=== PATIENT | male | born 1945 | race Caucasian/White ===

== ENCOUNTER 2022-04-01 19:09 | Inpatient (IN) ==
[2022-04-01] MEDS ORDERED: SODIUM CHLORIDE 0.9% 1000ML 500 ML IV ONE (19:56)
[2022-04-01 19:57] LABS: Basophils # (auto) 0.06 K/uL (0-0.2); Basophils % (auto) 0.7 %; Eosinophils # (auto) 0.17 K/uL (0-0.50); Eosinophils % (auto) 1.9 %; Hematocrit (blood only) 38.4 % (40.1-51.0); Hemoglobin 12.9 g/dl (14.0-18.0); Immature Granulocytes # (auto) 0.03 K/uL (0.00-0.02); Immature Granulocytes % (auto) 0.3 %; Lymphocytes # (auto) 1.67 K/uL (1.2-3.4); Lymphocytes % (auto) 18.3 %; Mean Corpuscular Hemoglobin 30.6 pg (25.0-34.0); Mean Corpuscular Hgb Conc 33.6 g/dL (32.0-36.0); Mean Corpuscular Volume 91.2 fL (80.0-100.0); Mean Platelet Volume 9.9 fL (9.4-12.4); Monocytes # (auto) 0.55 K/uL (0.24-0.82); Neutrophils # (auto) 6.64 K/uL (1.4-6.5); Neutrophils % (auto) 72.8 %; Platelet Count 286 K/uL (130-400); RDW Coefficient of Variation 15.1 % (11.5-14.5); RDW Standard Deviation 50.2 fL (36.4-46.3); Red Blood Count 4.21 M/uL (4.63-6.08); White Blood Count 9.12 K/ul (4.8-10.8)
--- NOTE | 2022-04-01 20:04 | Emergency Department Note ---
Impression & Plan Weakness, Hypoglycemia, Pneumonia, Anemia ED Provider Note NAME: KENNA GARCIA AGE: 76 SEX: M : 1945 ARRIVES VIA: Ambulance INFORMANT: [Patient][ems, nursing] ED PROVIDER(S): [Ashwin Macdonald MD] CHIEF COMPLAINT: Overdose HISTORY OF PRESENT ILLNESS: The patient is a 76-year-old male who received his morning insulin dose this morning as administered by his . Tonight, he was not himself, he had not yet eaten, his sugar was 23 when seen by EMS. Received D10 IV and his sugar is now 71. He has back to his mental baseline per EMS. The patient's arrived at bedside. She states that the patient has gone downhill in the last week. His speech is more slurred, he is less active and is requiring more care. He is just not himself. Of note, the patient was seen recently in the ED for a very similar presentation. He improved in the ED is eventually sent home. REVIEW OF SYSTEMS: Unobtainable given the patient's current mental state and slurred speech. PMHx/PSHx: See Below SOCIAL HISTORY: See Below. PHYSICAL EXAM: GENERAL: Patient is in no acute distress. HEENT: No acute trauma, normocephalic atraumatic, mucous membranes moist, no nasal congestion, no scleral icterus. NECK: No stridor, no adenopathy, no meningismus, trachea is midline. LUNGS: Clear to auscultation bilaterally, no wheeze, no rhonchi, breath sounds equal. HEART: Without murmurs gallops or rubs, regular rate and rhythm. ABDOMEN: Soft, nontender, bowel sounds positive, no peritonitis. EXTREMITIES: No cyanosis or edema, full range of motion of all the joints w ithout pain or difficulty, no signs for acute trauma. NEUROLOGIC: Awake and alert, moving all extremities, speech slur noted. Slow speech noted. SKIN: No rash, no jaundice, no diaphoresis. DIFFERENTIAL DIAGNOSIS: Infection, dehydration, UTI, metabolic abnormality, hypo/hyperglycemia, electrolyte disturbance, anemia, hypoxia, cardiac sources, intracerebral event, toxicologic issues, stroke, TIA, as well as other pathologies. EMERGENCY DEPARTMENT COURSE/PROCEDURES: ECG: Indication was weakness. The ECG shows a sinus rhythm with a first- degree AV block. The rate is 74. 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 There are some inverted T waves seen in the lateral leads. No ST elevation, no PVCs. The QTc is 459. There is an ECG from 31 March 2022, I see no significant change. Continuous Cardiac Monitoring: An order was placed for continuous cardiac monitoring. The monitor shows a rate of 77 with sinus rhythm with a first- degree AV block. MEDICAL DECISION MAKING: There is no leukocytosis. The patient is anemic with a hemoglobin of 12.9. Platelet count was 286. No renal failure. Glucose was initially reported at 23. By our testing here, the glucose has been ranging between 58 to around 100. No concerning liver enzyme elevation. Urinalysis did not show infection. COVID test returned negative. Brain CT shows no acute bleed or mass-effect. Chest x- ray suggests a potential left lower lung pneumonia. ECG shows a sinus rhythm with a first-degree AV block, no obvious ischemia. The patient had received IV D10 for a low sugar recorded by the EMS crew. This was the second day in a row that his sugar was very low As per the patient's , the patient has not been himself and has been on a significant decline this last week. She did not feel he was safe to be at home. The patient was given IV saline, he received IV ceftriaxone for the presumed pneumonia. He did eat here to help with the lower recorded sugar values. Given the 2 visits in just 2 days, given the low sugar, given his weakness and decline, given the potential pneumonia on imaging, I do think a hospital stay is warranted. I did speak with case management, I spoke with the patient and his , the on-call hospitalist was consulted. Past Med/Surg History Medical History Dementia Diabetes Hypertension Parkinsons Social History Smoking Status: Never smoker Results & Data (ED) Vital Signs Vital Signs - 24 hr 04/01/22 19:30 04/01/22 19:30 04/01/22 20:00 Temperature 36.8 C Temperature Source Oral Pulse Rate 77 Pulse Rate [Apical] 73 Pulse Rhythm Regular Pulse Strength Normal Respiratory Rate 18 16 Respiratory Effort / Characteristics Non-Labored Spontaneous Non-Labored Spontaneous Respiratory Depth Normal Normal Respiratory Pattern Regular Blood Pressure 155/93 H Blood Pressure [Left Arm] 168/74 H Blood Pressure Mean 113 Blood Pressure Mean [Left Arm] 105 Blood Pressure Position Semi-fowlers Pulse Oximetry 96 96 97 Oxygen Delivery Method Room Air Room Air Room Air Oxygen Flow Rate 0 Sepsis Recent Fever Within 48 Hours No Sepsis New/Unexplained Change in Mental Status No Sepsis Action Taken by Nursing No Action Required 04/01/22 21:05 Temperature Temperature Source Pulse Rate Pulse Rate [Apical] 74 Pulse Rhythm Pulse Strength Respiratory Rate 18 Respiratory Effort / Characteristics Non-Labored Spontaneous Respiratory Depth Normal Respiratory Pattern Regular Blood Pressure Blood Pressure [Left Arm] 141/73 H Blood Pressure Mean Blood Pressure Mean [Left Arm] 95 Blood Pressure Position Pulse Oximetry 94 Oxygen Delivery Method Room Air Oxygen Flow Rate Sepsis Recent Fever Within 48 Hours Sepsis New/Unexplained Change in Mental Status Sepsis Action Taken by Custodial Medications Current Medication List: was personally reviewed by me Laboratory Data Attestation: I reviewed the patient's lab results. Result diagrams: 04/01/22 19:15 04/01/22 19:15 Lab Results 04/01/22 04/01/22 04/01/22 Range/Units 19:15 19:15 19:17 WBC 9.12 (4.8-10.8) K/ul RBC 4.21 L (4.63-6.08) M/uL Hgb 12.9 L (14.0-18.0) g/dl Hct 38.4 L (40.1-51.0) % MCV 91.2 (80.0-100.0) fL MCH 30.6 (25.0-34.0) pg MCHC 33.6 (32.0-36.0) g/dL RDW Std Deviation 50.2 H (36.4-46.3) fL RDW Coeff of Annmarie 15.1 H (11.5-14.5) % Plt Count 286 (130-400) K/uL MPV 9.9 (9.4-12.4) fL Immature Gran % (Auto) 0.3 % Neut % (Auto) 72.8 % Lymph % (Auto) 18.3 % [place] % (Auto) 6.0 % Eos % (Auto) 1.9 % Baso % (Auto) 0.7 % Neut # (Auto) 6.64 H (1.4-6.5) K/uL Lymph # (Auto) 1.67 (1.2-3.4) K/uL [place] # (Auto) 0.55 (0.24-0.82) K/uL Eos # (Auto) 0.17 (0-0.50) K/uL Baso # (Auto) 0.06 (0-0.2) K/uL Immature Gran # (Auto) 0.03 H (0.00-0.02) K/uL Sodium 140 (136-145) mmol/L Potassium 3.7 (3.5-5.1) mmol/L Chloride 104 (98-107) mmol/L Carbon Dioxide 28 (21-32) mmol/L Anion Gap 8 (3-11) BUN 22 (6-23) mg/dl Creatinine 0.90 (0.6-1.4) mg/dl Est Cr Clr Drug Dosing 67.6 ml/min Est GFR ( Amer) 94.5 ml/min Est GFR (Non-Af Amer) 81.5 ml/min BUN/Creatinine Ratio 24.4 H (10-20) Glucose 58 L (70-99(Fasting)) mg/dl POC Glucose 71 (70-99) mg/dl Calcium 9.2 (8.5-10.1) mg/dl Total Bilirubin 0.5 (0.2-1.0) mg/dl AST 17 (13-39) U/L ALT 11 (7-52) U/L Alkaline Phosphatase 59 (34-104) U/L Total Protein 7.1 (6.0-8.3) gm/dl Albumin 4.1 (3.4-5.0) gm/dl Globulin 3.0 (2.5-4.0) gm/dl Albumin/Globulin Ratio 1.4 (0.9-2) Urine Color Urine Appearance (Clear) Urine pH (4.5-7.5) Ur Specific [place] (1.000-1.030) Urine Protein (Negative) Urine Glucose (UA) (Negative) Urine Ketones (Negative) Urine Blood (Negative) Urine Nitrite (Negative) Urine Bilirubin (Negative) Urine Urobilinogen (Negative) Ur Leukocyte Esterase (Negative) SARS-CoV-2, RNA, NAAT (NEGATIVE) 04/01/22 04/01/22 04/01/22 Range/Units 19:53 20:08 20:49 WBC (4.8-10.8) K/ul RBC (4.63-6.08) M/uL Hgb (14.0-18.0) g/dl Hct (40.1-51.0) % MCV (80.0-100.0) fL MCH (25.0-34.0) pg MCHC (32.0-36.0) g/dL RDW Std Deviation (36.4-46.3) fL RDW Coeff of Annmarie (11.5-14.5) % Plt Count (130-400) K/uL MPV (9.4-12.4) fL Immature Gran % (Auto) % Neut % (Auto) % Lymph % (Auto) % [place] % (Auto) % Eos % (Auto) % Baso % (Auto) % Neut # (Auto) (1.4-6.5) K/uL Lymph # (Auto) (1.2-3.4) K/uL [place] # (Auto) (0.24-0.82) K/uL Eos # (Auto) (0-0.50) K/uL Baso # (Auto) (0-0.2) K/uL Immature Gran # (Auto) (0.00-0.02) K/uL Sodium (136-145) mmol/L Potassium (3.5-5.1) mmol/L Chloride (98-107) mmol/L Carbon Dioxide (21-32) mmol/L Anion Gap (3-11) BUN (6-23) mg/dl Creatinine (0.6-1.4) mg/dl Est Cr Clr Drug Dosing ml/min Est GFR ( Amer) ml/min Est GFR (Non-Af Amer) ml/min BUN/Creatinine Ratio (10-20) Glucose (70-99(Fasting)) mg/dl POC Glucose 102 H (70-99) mg/dl Calcium (8.5-10.1) mg/dl Total Bilirubin (0.2-1.0) mg/dl AST (13-39) U/L ALT (7-52) U/L Alkaline Phosphatase (34-104) U/L Total Protein (6.0-8.3) gm/dl Albumin (3.4-5.0) gm/dl Globulin (2.5-4.0) gm/dl Albumin/Globulin Ratio (0.9-2) Urine Color Yellow Urine Appearance Clear (Clear) Urine pH 6.0 (4.5-7.5) Ur Specific [place] 1.008 (1.000-1.030) Urine Protein Negative (Negative) Urine Glucose (UA) Negative (Negative) Urine Ketones Negative (Negative) Urine Blood Negative (Negative) Urine Nitrite Negative (Negative) Urine Bilirubin Negative (Negative) Urine Urobilinogen Negative (Negative) Ur Leukocyte Esterase Negative (Negative) SARS-CoV-2, RNA, NAAT NEGATIVE (NEGATIVE) 04/01/22 Range/Units 20:49 WBC (4.8-10.8) K/ul RBC (4.63-6.08) M/uL Hgb (14.0-18.0) g/dl Hct (40.1-51.0) % MCV (80.0-100.0) fL MCH (25.0-34.0) pg MCHC (32.0-36.0) g/dL RDW Std Deviation (36.4-46.3) fL RDW Coeff of Annmarie (11.5-14.5) % Plt Count (130-400) K/uL MPV (9.4-12.4) fL Immature Gran % (Auto) % Neut % (Auto) % Lymph % (Auto) % [place] % (Auto) % Eos % (Auto) % Baso % (Auto) % Neut # (Auto) (1.4-6.5) K/uL Lymph # (Auto) (1.2-3.4) K/uL [place] # (Auto) (0.24-0.82) K/uL Eos # (Auto) (0-0.50) K/uL Baso # (Auto) (0-0.2) K/uL Immature Gran # (Auto) (0.00-0.02) K/uL Sodium (136-145) mmol/L Potassium (3.5-5.1) mmol/L Chloride (98-107) mmol/L Carbon Dioxide (21-32) mmol/L Anion Gap (3-11) BUN (6-23) mg/dl Creatinine (0.6-1.4) mg/dl Est Cr Clr Drug Dosing ml/min Est GFR ( Amer) ml/min Est GFR (Non-Af Amer) ml/min BUN/Creatinine Ratio (10-20) Glucose (70-99(Fasting)) mg/dl POC Glucose 89 (70-99) mg/dl Calcium (8.5-10.1) mg/dl Total Bilirubin (0.2-1.0) mg/dl AST (13-39) U/L ALT (7-52) U/L Alkaline Phosphatase (34-104) U/L Total Protein (6.0-8.3) gm/dl Albumin (3.4-5.0) gm/dl Globulin (2.5-4.0) gm/dl Albumin/Globulin Ratio (0.9-2) Urine Color Urine Appearance (Clear) Urine pH (4.5-7.5) Ur Specific [place] (1.000-1.030) Urine Protein (Negative) Urine Glucose (UA) (Negative) Urine Ketones (Negative) Urine Blood (Negative) Urine Nitrite (Negative) Urine Bilirubin (Negative) Urine Urobilinogen (Negative) Ur Leukocyte Esterase (Negative) SARS-CoV-2, RNA, NAAT (NEGATIVE) Administered Medications Discontinued Medications Sodium Chloride (Nss 1000ml) 500 mls @ 999 mls/hr IV .Q31M ONE Stop: 04/01/22 20:26 Last Infusion: 04/01/22 20:51 Dose: 0 mls/hr Documented By: Admin: 04/01/22 20:00 Dose: 999 mls/hr Documented By: AN Imaging Data Radiologist's Impression: Chest X-Ray 04/01/22 19:56 XR chest 1V portable HISTORY: Altered mental status. COMPARISON: Chest 03/31/2022. FINDINGS: No pneumothorax. No pleural effusions. The heart is normal in size. No evidence for pulmonary edema. There are old, healed right-sided rib fractures. Left retrocardiac linear densities are noted. This favors atelectasis. A de veloping pneumonia could also have a similar appearance. Old, healed right humeral and distal right clavicle fracture is again noted. IMPRESSION: A few left retrocardiac linear densities which favor atelectasis. A developing pneumonia could also have a similar appearance. ACT 112: Negative or not required by law. Electronically signed by: Chai Campbell M.D. 04/01/2022 8:[address]: No acute intracranial abnormality. Sinuses are clear. Age-related atrophy. Discharge Plan Visit Data Chief Complaint: Overdose (Accidental) ED Provider: Ashwin Macdonald Discharge Problem: Weakness, Hypoglycemia, Pneumonia, Anemia Patient Disposition: Admitted As Inpatient Condition: Fair Forms Stand Alone Forms: [facility] Referrals [facility]: [facility] [Primary Care Provider] -
[2022-04-01 20:21] LABS: Albumin Globulin Ratio 1.4 (0.9-2); Albumin Level 4.1 gm/dl (3.4-5.0); BUN Creatinine Ratio 24.4 (10-20); Bilirubin,Total 0.5 mg/dl (0.2-1.0); Calcium 9.2 mg/dl (8.5-10.1); Creatinine Clr Calc Pharmacy 67.6 ml/min; Est GFR (African American) 94.5 ml/min; Est GFR (Non-African American) 81.5 ml/min; Potassium 3.7 mmol/L (3.5-5.1); Total Protein 7.1 gm/dl (6.0-8.3)
--- NOTE | 2022-04-01 20:58 | XRay Report ---
XR chest 1V portable HISTORY: Altered mental status. COMPARISON: Chest 03/31/2022. FINDINGS: No pneumothorax. No pleural effusions. The heart is normal in size. No evidence for pulmona ry edema. There are old, healed right-sided rib fractures. Left retrocardiac linear densities are not ed. This favors atelectasis. A developing pneumonia could also have a similar appearance. Old, healed right humeral and distal right clavicle fracture is again noted. IMPRESSION: A few left retrocardiac linear densities which favor atelectasis. A developing pneumonia could also h ave a similar appearance. ACT 112: Negative or not required by law. Electronically signed by: Chai Campbell M.D. 04/01/2022 8:57 PM
[2022-04-01] MEDS ORDERED: cefTRIAXone SODIUM 2,000 MG/70 ML BAG IV STA (21:04)
[2022-04-01 21:09] LABS: Appearance Urine Clear (Clear); Bilirubin Urine Negative (Negative); Blood Urine Negative (Negative); Color Urine Yellow; Glucose Urine UA Negative (Negative); Ketones Urine Negative (Negative); Leukocyte Esterase Urine Negative (Negative); Nitrite Urine Negative (Negative); Protein Urine Negative (Negative); Specific Gravity Urine 1.008 (1.000-1.030); Urobilinogen Urine Negative (Negative)
--- NOTE | 2022-04-01 23:20 | History & Physical Report ---
Date of Service April 01, 2022 Assessment & Plan (1) Hypoglycemia: Plan: Dioni Pulido is a 76-year-old male with past medical history of diabetes, hypertension, dementia/Parkinson's who presented due to recurrent hypoglycemic episode at home. Hypoglycemia with episode of AMS now resolved Head CT negative for any acute findings Patient does have a history of DM 2 on insulin Glucose on admission found to be at 58 and consistently trending up on subsequent checks Unfortunately, the med list that the patient's family was able to bring in was from prior PCP He has recently moved to the [place] for primary care and the patient's and son state that there have been some med changes instituted There is concern for the possibility of insulin doses being either missed or improperly administered due to 's memory issues At this time, will hold all diabetic medications BSG checks every 4 hours Hypoglycemia protocol ordered Start on D5W/NSS at 80 cc/h Keep n.p.o. for now Home insulin and diabetic regimen will have to be cleared up patient's family plan to bring an updated list tomorrow Weakness/deconditioning/Parkinson's dementia Concern from patient's son/POA that his father's needs are unable to be bent at home Per discussion with him, they are all in agreement with patient being placed in a fpc Will consult PT/OT to evaluate needs, case management for assistance with dispo planning From outdated med list, patient was on carbidopalevodopa and donepezil will hold at this time while n.p.o. Consider restarting once updated home med list is received Abnormal chest x-ray CXR showing a few left retrocardiac linear densities, which favor atelectasis a developing pneumonia could also have a similar appearance Administered ceftriaxone 2 g IV x1 in ED However, he does not have respiratory symptoms and is oxygenating well on room air Likely that imaging findings are more consistent with atelectasis than pneumonia at this time Continue to monitor closely DVT prophylaxis: Holding though he does not seem to have any history requiring anticoagulation, will confirm with updated med list prior to initiating chemoprophylaxis FEN/GI: N.p.o. for now, D5W/NSS at 80 cc/h Dispo: Admit to med telemetry, PT/OT/CM for placement needs CODE STATUS: DNR/DNI, discussed with patient, , son/POA (2) Acute alteration in mental status: (3) Weakness: History of Present Illness Primary Care Provider: [facility] [address] Dioni Pulido is a 76-year-old male with past medical history of diabetes, hypertension, dementia/Parkinson's who presented today due to hypoglycemic episode at home. He was seen yesterday in the ED for similar presentation. At that time, his blood sugar was able to be normalized and he was discharged home with instructions to continue usual meds. Today, his administered his usual morning insulin dose. She states that he had a relatively normal sized breakfast, but that as usual, he had not eaten much for lunch or dinner. Later in the afternoon she noticed that he was acting unlike himself at which point she decided to call EMS. When seen by EMS, patient's blood sugar was found to be at 23. He was administered D10 IV and BSG improved to 71. Patient at bedside reports concerns that he has been deteriorating somewhat over the past week. The patient himself denies chest pain, palpitations, nausea, vomiting, shortness of breath, cough, headache, dizziness. Patient's son (JOSHUA) is in the room as well. Shortly after my conversation with all of them in the room, patient's son followed me out of the room and stated that he was concerned about his father's wellbeing. He states he believes his father should be in a fpc, as he does not believe his mom is able to completely take care of his father. He states that there have been several instances in which his mom has seemed to have forgotten to administer medications. He also states she is unable to help the patient with all his mobility needs, as she is unable to carry him. He has very limited mobility at baseline. The patient's son lives in [place] and works in [place]. He does visit every weekend but is unable to be around full-time. He states they have discussed moving his father to a fpc and that they are all in agreement with this. He states he would like help figuring out where his father might be able to go. Allergies Allergy/AdvReac Type Severity Reaction Status Date / Time No Known Allergies Allergy Verified 04/02/22 00:02 Home Medications Medication Instructions Recorded Confirmed Type acetaminophen 325 mg tablet 650 mg PO Q6 PRN Pain 04/01/22 04/01/22 History (Tylenol) aspirin 81 mg tablet,delayed 81 mg PO DAILY 04/01/22 04/02/22 History release carbidopa 10 mg-levodopa 100 mg 1 tab PO TID 04/01/22 04/01/22 History tablet cholecalciferol (vitamin D3) 125 125 mcg PO DAILY 04/01/22 04/02/22 History mcg (5,000 unit) tablet (Vitamin D3) coenzyme Q10 100 mg capsule 100 mg PO DAILY 04/01/22 04/01/22 History (CoQ-10) donepezil 10 mg tablet 10 mg PO DAILY 04/01/22 04/01/22 History insulin human U-100 NPH-regulr 30 unit subcut QPM 04/01/22 04/01/22 History 70-30 mix 100 unit/mL subcutaneous susp (Novolin 70/30 U-100 Insulin) insulin human U-100 NPH-regulr 40 unit subcut QAM 04/01/22 04/01/22 History 70-30 mix 100 unit/mL subcutaneous susp (Novolin 70/30 U-100 Insulin) lidocaine 5 % topical patch 1 patch topical DAILY 04/01/22 04/02/22 History losartan 50 mg tablet 50 mg PO DAILY 04/01/22 04/01/22 History meloxicam 7.5 mg tablet 7.5 - 15 mg PO DAILY 04/01/22 04/01/22 History multivitamin with minerals 1 tab PO DAILY 04/01/22 04/01/22 History pioglitazone 45 mg tablet (Actos) 45 mg PO DAILY 04/01/22 04/01/22 History sennosides 8.6 mg-docusate sodium 1 tab-cap PO Q OTHER DAY 04/01/22 04/01/22 H istory 50 mg tablet (Senna-S) simvastatin 80 mg tablet 40 mg PO HS 04/01/22 04/01/22 History Past Med/Surg History Medical History Dementia Diabetes Hypertension Parkinsons Social History Smoking Status: Former smoker Hx Alcohol Use: No Hx Substance Use: No Preferred Language: Khmer Communication Ability: Effective Expenditure Requisition Clerk Required: No Beliefs That Will Affect Care: None Current Living Situation: Spouse Feels Safe at Home: Yes Assistive Devices: Denture - Upper, Denture - Lower, Glasses and Walker Review of Systems Review of Systems: Per HPI Physical Exam Physical Exam: GENERAL: A&Ox3. NAD. HEENT: PERRL, EOMI. Moist mucous membranes. NECK: No JVD. No lymphadenopathy. CHEST/LUNGS: CTAB A/P. No crackles, wheezes, rales, rhonchi. HEART: RRR. No m/g/r. No carotid bruits. ABDOMEN: NT/ND, soft. BS+ x4 EXTREMITIES: No cyanosis, no clubbing, no edema. SKIN: Warm and dry. No rashes or lesions. NEUROLOGIC: Dysarthric, slurred speech. Able to move all 4 extremities, follows simple commands. Does respond to questions appropriately. Results & Data Results & Data ([facility]) Vital Signs (Past 12 Hours) Vital Signs Temp Pulse Pulse Resp BP BP Pulse Ox 04/01/22 23:00 86 16 155/88 H 94 04/01/22 22:00 71 18 146/82 H 94 04/01/22 21:05 74 18 141/73 H 94 04/01/22 20:00 73 16 168/74 H 97 04/01/22 19:30 96 04/01/22 19:30 36.8 C 77 18 155/93 H 96 O2 Del Method O2 Flow Rate 04/01/22 23:00 Room Air 04/01/22 22:00 Room Air 04/01/22 21:05 Room Air 04/01/22 20:00 Room Air 04/01/22 19:30 Room Air 0 04/01/22 19:30 Room Air Supervising Physician Co-Signing Physician Notes Attending addendum: I have physically seen this patient, have supervised the medical residents activities, and agree with the H&P unless as otherwise noted. Assessment and Plan: Recurrent hypoglycemia/altered mental status- Likely an issue with administration of insulin at home, as patient is unable to give his own, and his appears to be confused. Hold all diabetic medications Placed on Accu-Cheks every 4 hours with sliding scale coverage Check hemoglobin A1c Placed on D5W at 80 mils per hour Medication list need to be updated Generalized weakness/deconditioning/Parkinson's dementia- Consult PT/OT long-term placement as per family discussion Medication list needs updated, internal dosing of carbidopa/levodopa and donepezil Remaining orders and notations as noted Resident Activity Tracking Resident Involvement: Resident Care Provided Care Provided: Adult [facility]
[2022-04-02] MEDS ORDERED: DEXTROSE 50% 50 ML SYRINGE IV PRN (02:30)
[2022-04-02] MEDS ORDERED: GLUCOSE 10 TAB/TUBE PO PRN (02:30)
[2022-04-02] MEDS ORDERED: CARBOHYDRATES FOR HYPOGLYCEMIA PO PRN (02:30)
[2022-04-02] MEDS ORDERED: ONDANSETRON INJ 2 MG/ML 2 ML VIAL IV PRN (02:30)
[2022-04-02] MEDS ORDERED: GLUCAGON FOR INJ 1 MG VIAL SQ PRN (02:30)
[2022-04-02] MEDS ORDERED: ACETAMINOPHEN 1,000 MG/100 ML VIAL IV PRN (02:30)
[2022-04-02] MEDS ORDERED: GLUCOSE 40% GEL 15 GM TUBE PO PRN (02:30)
[2022-04-02] MEDS: D5NSS + 20MEQ KCL 20 MEQ/1,000 ML BAG IV SCH ×2 (03:41→20:15)
[2022-04-02 07:41] LABS: Estimated Average Glucose 128 mg/dl; Hemoglobin A1C 6.1 % (4.5-5.6)
--- NOTE | 2022-04-02 07:56 | CT Scan Report ---
CT OF THE HEAD WITHOUT CONTRAST CLINICAL HISTORY: Confusion. COMPARISON STUDY: Head CT March 31, 2022. CT DOSE: 1228.53 mGy.cm TECHNIQUE: Helical axial images of the head were obtained without IV contrast. Automated exposure con trol was utilized for the study. A dose lowering technique was utilized adhering to the principles o f ALARA. FINDINGS: No acute intracranial hemorrhage, midline shift or mass effect is present. Mild ventricular dilatation is due to atrophy. The basal cisterns are patent. No extra-axial collections are present. There are no findings to suggest acute dural sinus thrombosis or acute territorial infarct. No signi ficant calvarial abnormalities are present. Visualized portions of the sinuses and mastoid air cells are clear. IMPRESSION: No acute intracranial findings. ACT 112: Negative or not required by law. Electronically signed by: Lee Renae M.D. 04/02/2022 7:54 AM
[2022-04-02] MEDS ORDERED: PHARMACY GLYCEMIC MGMT CONSULT PRN (13:49)
--- NOTE | 2022-04-02 13:50 | Hospitalist Progress Note ---
Date of Service April 02, 2022 Assessment & Plan (1) Acute alteration in mental status: Plan: - Episode of hypoglycemia and associated AMS with a BS of 58 on admit - Pt also has a h/o dementia and takes Aricept, uncertain how advanced his dementia is - BSG checks trending up, currently receiving D5NSS - Unclear why he was made NPO, will order speech eval to assess for appropriate diet given his speech (pt's son claims that this has been going on for the past 4 years) - Pt is more awake/alert and answering questions (2) Hypoglycemia: Plan: - Resolving - Consult pharmacy for glycemic management, appreciate assistance (3) Weakness: Plan: - Patient takes Parkinson's meds but per son, he does not have Parkinson's disease, mentioned "cerebral brain disorder" - PT/OT eval - Case management - Family interested in mcc placement, even extending search for a bed to [facility] where the son resides (4) Type 2 diabetes mellitus: Plan: - As above (5) Right arm weakness: Plan: - Son claims pt suffered shoulder fx approx 2 years ago and has had issues with this arm ever since - Claims shoulder fx was inoperable after seeing multiple orthopedic surgeons - Son claims pt has never had a stroke - Check MRI brain w/o contrast Plan Spoke with son, Amanuel (POA), over the phone concerning his dad. 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 Will start process by obtaining PT/OT eval. Case management will be consulted to assist in d/c planning. I explained at length to Amanuel that his dad could end up being in the hospital for weeks waiting for a bed due to lack of beds in the local nursing home facilities. I did explain that him and his mom could provide 3 preferred facilities and we can start with those, however, if bed is not available at those places, will need to expand search and take first available bed. He verbalized understanding. He is interested in expanding the search if needed to where he resides which is in [facility]. Plan to be d/w Dr. Leslie. Further orders as warranted. Admission and Anticipated Discharge Date Admission Date: April 01, 2022 Subjective Patient seen on daily rounds this morning. Appears patient hospitalized last evening due to concerns for increased confusion and low blood sugar. This morning, pt is awake and alert. Seems to answer questions appropriately but he is difficult to communicate with due to his garbled speech. Per patient's son, Amanuel, this is not a new issue and has been going on for the past 4 years. He has not ever been diagnosed with a stroke per son's knowledge. Son states that goal at this time is to facilitate getting his dad into a long-term as he is concerned with his mom's inability to care for him at home. There have been at least 2 different occasions where his mom (patient's ) has given incorrect doses of medications, particularly his insulin. Review of Systems Review of Systems: All systems reviewed and are unremarkable except as noted in HPI and below. +confusion (although improved), garbled speech, R arm weakness and shoulder pain Denies fever, chills, fatigue, headache, nasal congestion, sore throat, cough, chest pain, shortness of breath, palpitations, orthopnea, PND, abdominal pain, n/v/d, constipation, dysuria, hematuria, frequency, back pain, easy bruising or bleeding, skin lesions or rashes. Physical Exam Physical Exam: GENERAL: 76 yo Well-developed, well-nourished elderly WM. NAD. LUNGS: Clear to auscultation bilaterally. No W/R/R. CARDIOVASCULAR: Regular rate and rhythm. ABDOMEN: Soft, non-tender and non-distended. BS normoactive x 4 quad. EXTREMITIES: No edema. Non-tender. Peripheral pulses +2/4. NEUROLOGIC: A&O. Difficult to communicate with due to garbled speech. Hemiparesis of R arm. PSYCHIATRIC: Cooperative. Appropriate mood and affect. SKIN: Warm, dry, intact. No rashes or lesions. Results & Data Results & Data ([facility]) Vital Signs (Past 12 Hours) Vital Signs Temp Pulse Resp BP Pulse Ox O2 Del Method 04/02/22 11:07 85 18 164/64 H 96 04/02/22 08:10 36.8 C 85 18 168/82 H 97 Room Air 04/02/22 03:00 78 16 146/66 H 94 Room Air 04/02/22 02:24 Room Air 04/02/22 02:00 80 16 172/64 H 95 Room Air Laboratory Results 04/01/22 19:15 04/01/22 19:15 PG Care Time/CCT Total # of Minutes Spent Total Time Spent with Patient: Total time spent is greater than 50% in coordination of care (as documented) at patient's floor/unit and/or counseling patient: Coding Level of Care Code 29782 Subseq Hosp Care Lvl 2 Diagnoses Acute alteration in mental status R41.82 Hypoglycemia E16.2 Weakness R53.1 Type 2 diabetes mellitus E11.9 Right arm weakness R29.898
--- NOTE | 2022-04-02 14:23 | Pharmacy Report ---
Pharmacy Glycemic Short Note 2 - Date of Service April 02, 2022 - Glycemic Short BSG Results (Last 24 hours): 04/01/22 04/01/22 04/01/22 19:15 19:17 19:53 Glucose 58 L POC Glucose 71 102 H 04/01/22 04/01/22 04/01/22 20:49 21:52 22:26 Glucose POC Glucose 89 64 L* 87 04/01/22 04/02/22 04/02/22 23:31 03:09 06:42 Glucose POC Glucose 94 98 109 H 04/02/22 10:38 Glucose POC Glucose 137 H OUTPATIENT ANTIDIABETIC REGIMEN: * Novolin 70/30- 40 units in AM and 30 units in PM * HbA1C = 6.1% (04/02/22) ASSESSMENT: * Mr Pulido is a 76 y/o M with a PMH of T2DM who presents with hypoglycemia and AMS. Per EMS, patient's BSG at home was 28 mg/dL. Patient given an amp of dextrose. * BSGs inhouse have been 71/102/89/64 yesterday 04/01/22 and then today have been 98/109/137 mg/dL. * Pharmacy consulted after lunch BSG of 137 mg/dL. * Patient on D5NS +20 KCl @ 80 cc/hr. Patient now has diet ordered. * Will start Lantus 10 units BID (hold if BSG < 180 mg/dL) as patient's BSGs are trending upwards. If higher than 180 mg/dL feel it is appropriate to restart basal insulin. * Novolog weight-based stress of 2. PLAN FOR INPATIENT GLYCEMIC CONTROL: * Hold outpatient oral diabetes medications * Basal insulin * Lantus 10 units SQ BID (hold if BSG < 180 mg/dL) * Bolus insulin * NovoLog per scale ACHS or Q6hrs while NPO * Goal Range: Low 120 mg/dL - High 160 mg/dL * Correction Factor: 30 mg/dL/unit * Nutritional / Prandial insulin per carb ratio of 1 unit per 10 grams CHO consumed
--- NOTE | 2022-04-02 15:35 | Electrocardiogram Report ---
Test Reason : Blood Pressure : / mmHG Vent. Rate : 074 BPM Atrial Rate : 074 BPM P-R Int : 222 ms QRS Dur : 098 ms QT Int : 414 ms P-R-T Axes : 050 -32 082 degrees QTc Int : 459 ms Sinus rhythm with 1st degree A-V block Left axis deviation Anteroseptal infarct (cited on or before 31-MAR-2022) Abnormal ECG When compared with ECG of 31-MAR-2022 09:39, Nonspecific T wave abnormality has replaced inverted T waves in Lateral leads Confirmed by Rakesh Castro ([id number]) on 04/02/2022 3:34:59 PM Referred By: REFERRED SELF Confirmed By:Rakesh Castro
--- NOTE | 2022-04-02 17:35 | Magnetic Resonance Report ---
Brain MRI WITHOUT CONTRAST HISTORY: confusion, garbled speech TECHNIQUE: Multiplanar multisequence MRI of the brain was performed without the use of contrast. COMPARISON STUDY: Head CT 04/01/2022. FINDINGS: Mild motion artifact. No areas of restricted diffusion to suggest acute infarction. The mid line structures appear intact. The paranasal sinuses and mastoid air cells are clear. The major vascu lar flow voids at the skull base are well-maintained. Evidence for prior bilateral lens replacement. Persistent prominence of the ventricles. This favors central volume loss due to age-related atrophy. No definite mass, hematoma, midline shift. IMPRESSION: 1. Mild motion artifact. No evidence for an acute infarct or intracranial hemorrhage. 2. Stable prominence of the ventricles. This favors central volume loss. ACT 112: Negative or not required by law. Electronically signed by: Chai Campbell M.D. 04/02/2022 5:33 PM
[2022-04-02] MEDS: DOCUSATE SODIUM/SENNA 50/8.6MG TAB PO SCH (18:33)
[2022-04-02] MEDS: DONEPEZIL HCL 10 MG TAB PO SCH (18:33)
[2022-04-02] MEDS: CARBIDOPA/LEVODOP 10/100MG TAB PO SCH ×2 (18:33→21:35)
[2022-04-02] MEDS: ASPIRIN 81 MG ECTAB PO SCH (18:34)
[2022-04-02] MEDS: LOSARTAN POTASSIUM 50 MG TAB PO SCH (18:35)
--- NOTE | 2022-04-02 19:34 | Billing Data ---
Date of Service April 02, 2022 Coding Level of Care Code 89391 Initial Inpt Care Lvl 3
[2022-04-02] MEDS: INSULIN ASPART PER UNIT SC SCH ×2 (20:17→21:31)
[2022-04-02] MEDS: SIMVASTATIN 40 MG TAB PO SCH (21:36)
[2022-04-02] MEDS: LANTUS PER UNIT CHARGE SQ SCH (21:36)
[2022-04-03] MEDS: D5NSS + 20MEQ KCL 20 MEQ/1,000 ML BAG IV SCH (04:30)
[2022-04-03] MEDS: DONEPEZIL HCL 10 MG TAB PO SCH (07:35)
[2022-04-03] MEDS: ASPIRIN 81 MG ECTAB PO SCH (07:35)
[2022-04-03] MEDS: CARBIDOPA/LEVODOP 10/100MG TAB PO SCH ×3 (07:35→22:36)
[2022-04-03] MEDS: LOSARTAN POTASSIUM 50 MG TAB PO SCH (07:35)
[2022-04-03] MEDS: INSULIN ASPART PER UNIT SC SCH ×4 (08:46→22:55)
[2022-04-03] MEDS: LANTUS PER UNIT CHARGE SQ SCH ×2 (10:30→22:56)
--- NOTE | 2022-04-03 12:19 | Hospitalist Progress Note ---
Date of Service April 03, 2022 Assessment & Plan (1) Acute alteration in mental status: Plan: - Episode of hypoglycemia and associated AMS with a BS of 58 on admit c/w metabolic encephalopathy - Pt also has a h/o dementia and takes Aricept, uncertain how advanced his dementia is but will keep this in mind as he is at risk for delirium - Unclear why he was made NPO, will order speech eval to assess for appropriate diet given his speech (pt's son claims that this has been going on for the past 4 years) - Pt is awake/alert and answering questions appropriately - MRI negative for stroke or other acute findings AMS has resolved (2) Hypoglycemia: Plan: - Resolved - Consulted pharmacy for glycemic management, appreciate assistance - Change accuchecks to AC and HS - Stop D5NS (3) Weakness: Plan: - Patient takes Parkinson's meds but per son, he does not have Parkinson's disease, mentioned "cerebral brain disorder" - PT/OT eval - Case management - Family interested in terminal manager placement, even extending search for a bed to [place] where the son resides (4) Type 2 diabetes mellitus: Plan: - As above (5) Right arm weakness: Plan: - Son claims pt suffered shoulder fx approx 2 years ago and has had issues with this arm ever since - Claims shoulder fx was inoperable after seeing multiple orthopedic surgeons - Son claims pt has never had a stroke, MRI confirms this - 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 Updated patient's son, Amanuel, over the phone this a fternoon. Remains in agreement and patient also is agreeable to placement in SNF. Family is to decide on 3 local options to relay to case management. If they are unable to locate a local facility, they are willing to expand search to [place] where the son resides. Plan to be d/w Dr. Leslie. Admission and Anticipated Discharge Date Admission Date: April 01, 2022 Subjective Mr. Pulido was seen on rounds this morning. He is resting comfortably in bed, sitting upright, has no questions/concerns. Denies c/o pain. Still has not been assessed by PT/OT services yet. Arrived to floor late yesterday afternoon/evening. No issues verbalized this AM by nursing staff. Review of Systems Review of Systems: All systems reviewed and are unremarkable except as noted in HPI and below. +speech issues (chronic), R shoulder pain (chronic) Denies fever, chills, fatigue, headache, nasal congestion, sore throat, cough, chest pain, shortness of breath, palpitations, orthopnea, PND, abdominal pain, n/v/d, constipation, dysuria, hematuria, frequency, back pain, easy bruising or bleeding, skin lesions or rashes. Physical Exam Physical Exam: GENERAL: 76 yo Well-developed, well-nourished elderly WM. NAD. LUNGS: Clear to auscultation bilaterally. No W/R/R. CARDIOVASCULAR: Regular rate and rhythm. ABDOMEN: Soft, non-tender and non-distended. BS normoactive x 4 quad. EXTREMITIES: No edema. Non-tender. Peripheral pulses +2/4. 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 NEUROLOGIC: A&O. Difficult to communicate with due to garbled speech. PSYCHIATRIC: Cooperative. Appropriate mood and affect. SKIN: Warm, dry, intact. No rashes or lesions. Results & Data Results & Data ([facility]) Vital Signs (Past 12 Hours) Vital Signs Temp Pulse Pulse Resp BP Pulse Ox O2 Del Method 04/03/22 07:00 71 04/03/22 08:00 Room Air 04/03/22 07:41 36.5 C 84 18 200/74 H 97 Room Air 04/03/22 08:49 157/83 H 04/03/22 02:59 36.6 C 78 20 168/77 H 96 Room Air 04/03/22 03:04 Room Air PG Care Time/CCT Total # of Minutes Spent Total Time Spent with Patient: Total time spent is greater than 50% in coordination of care (as documented) at patient's floor/unit and/or counseling patient: Coding Level of Care Code 72573 Subseq Hosp Care Lvl 2 Diagnoses Acute alteration in mental status R41.82 Hypoglycemia E16.2 Weakness R53.1 Type 2 diabetes mellitus E11.9 Right arm weakness R29.898
[2022-04-03] MEDS: ACETAMINOPHEN 325 MG TAB PO PRN (15:30)
[2022-04-03] MEDS: SIMVASTATIN 40 MG TAB PO SCH (22:36)
[2022-04-04] MEDS: ACETAMINOPHEN 325 MG TAB PO PRN ×2 (00:15→21:27)
[2022-04-04] MEDS: DONEPEZIL HCL 10 MG TAB PO SCH (08:42)
[2022-04-04] MEDS: CARBIDOPA/LEVODOP 10/100MG TAB PO SCH ×3 (08:42→21:28)
[2022-04-04] MEDS: LOSARTAN POTASSIUM 50 MG TAB PO SCH (08:42)
[2022-04-04] MEDS: ASPIRIN 81 MG ECTAB PO SCH (08:43)
[2022-04-04] MEDS: INSULIN ASPART PER UNIT SC SCH ×4 (08:48→21:37)
[2022-04-04] MEDS: LANTUS PER UNIT CHARGE SQ SCH (08:48)
[2022-04-04] MEDS ORDERED: DOCUSATE SODIUM 100 MG CAP PO ONE (11:56)
--- NOTE | 2022-04-04 12:30 | Hospitalist Progress Note ---
Date of Service April 04, 2022 Assessment & Plan (1) Acute alteration in mental status: Plan: - Episode of hypoglycemia and associated AMS with a BS of 58 on admit c/w metabolic encephalopathy - Pt also has a h/o dementia and takes Aricept, uncertain how advanced his dementia is but will keep this in mind as he is at risk for delirium - Unclear why he was made NPO, will order speech eval to assess for appropriate diet given his speech (pt's son claims that this has been going on for the past 4 years) - Pt is awake/alert and answering questions appropriately - MRI negative for stroke or other acute findings AMS has resolved (2) Hypoglycemia: Plan: - Resolved - Consulted pharmacy for glycemic management, appreciate assistance - Change accuchecks to AC and HS - DMT2 diet ordered - Stop D5NS (3) Weakness: Plan: - Patient takes Parkinson's meds but per son, he does not have Parkinson's disease, mentioned "cerebral brain disorder" - PT/OT eval--recommending SNF - Case management - Family interested in assisted placement, even extending search for a bed to [place] where the son resides (4) Type 2 diabetes mellitus: Plan: - As above (5) Right arm weakness: Plan: - Son claims pt suffered shoulder fx approx 2 years ago and has had issues with this arm ever since - Claims shoulder fx was inoperable after seeing multiple orthopedic surgeons - Son claims pt has never had a stroke, MRI confirms this - 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 Will monitor. Family plan remains for placement in SNF. Family is to decide on 3 local options to relay to case management. If they are unable to locate a local facility, they are willing to expand search to [place] where the son resides. Plan to be d/w Dr. Leslie. Admission and Anticipated Discharge Date Admission Date: April 01, 2022 Subjective Mr. Pulido was seen on rounds this morning. He is resting comfortably in bed, sitting upright, mentioned that he feels slightly short of breath but did not mention this to nursing staff. Vitals WNL, afebrile with normal pulse ox/resp/HR. Review of Systems Review of Systems: All systems reviewed and are unremarkable except as noted in HPI and below. +speech issues (chronic), R shoulder pain (chronic) Denies fever, chills, fatigue, headache, nasal congestion, sore throat, cough, chest pain, shortness of breath, palpitations, orthopnea, PND, abdominal pain, n/v/d, constipation, dysuria, hematuria, frequency, back pain, easy bruising or bleeding, skin lesions or rashes. Physical Exam Physical Exam: GENERAL: 76 yo Well-developed, well-nourished elderly WM. NAD. LUNGS: Clear to auscultation bilaterally. No W/R/R. CARDIOVASCULAR: Regular rate and rhythm. ABDOMEN: Soft, non-tender and non-distended. BS normoactive x 4 quad. EXTREMITIES: No edema. Non-tender. Peripheral pulses +2/4. 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 NEUROLOGIC: A&O. Difficult to communicate with due to garbled speech. PSYCHIATRIC: Cooperative. Appropriate mood and affect. SKIN: Warm, dry, intact. No rashes or lesions. Results & Data Results & Data ([facility]) Vital Signs (Past 12 Hours) Vital Signs Temp Pulse Resp BP Pulse Ox O2 Del Method 04/04/22 11:00 36.9 C 81 18 127/75 96 Room Air 04/04/22 10:00 Room Air 04/04/22 07:44 36.7 C 72 18 161/79 H 97 Room Air PG Care Time/CCT Total # of Minutes Spent Total Time Spent with Patient: Total time spent is greater than 50% in coordination of care (as documented) at patient's floor/unit and/or counseling patient: Coding Level of Care Code 36891 Subseq Hosp Care Lvl 2 Diagnoses Acute alteration in mental status R41.82 Hypoglycemia E16.2 Weakness R53.1 Type 2 diabetes mellitus E11.9 Right arm weakness R29.898
[2022-04-04] MEDS: DOCUSATE SODIUM/SENNA 50/8.6MG TAB PO SCH (13:29)
[2022-04-04] MEDS ORDERED: LANTUS PER UNIT CHARGE SQ SCH (21:00)
[2022-04-04] MEDS: SIMVASTATIN 40 MG TAB PO SCH (21:28)
[2022-04-05] MEDS: ACETAMINOPHEN 325 MG TAB PO PRN ×2 (03:39→13:11)
[2022-04-05] MEDS ORDERED: LANTUS PER UNIT CHARGE SQ SCH (09:00)
[2022-04-05] MEDS: ASPIRIN 81 MG ECTAB PO SCH (09:27)
[2022-04-05] MEDS: DONEPEZIL HCL 10 MG TAB PO SCH (09:27)
[2022-04-05] MEDS: CARBIDOPA/LEVODOP 10/100MG TAB PO SCH ×3 (09:27→20:49)
[2022-04-05] MEDS: LOSARTAN POTASSIUM 50 MG TAB PO SCH (09:28)
[2022-04-05] MEDS: INSULIN ASPART PER UNIT SC SCH ×4 (09:44→20:08)
--- NOTE | 2022-04-05 11:48 | Hospitalist Progress Note ---
Date of Service April 05, 2022 Assessment & Plan (1) Acute alteration in mental status: Plan: - Episode of hypoglycemia and associated AMS with a BS of 58 on admit c/w metabolic encephalopathy - Pt also has a h/o dementia and takes Aricept, uncertain how advanced his dementia is but will keep this in mind as he is at risk for delirium - Unclear why he was made NPO, will order speech eval to assess for appropriate diet given his speech (pt's son claims that this has been going on for the past 4 years) - Pt is awake/alert and answering questions appropriately - MRI negative for stroke or other acute findings AMS has resolved (2) Hypoglycemia: Plan: - Resolved - Consulted pharmacy for glycemic management, appreciate assistance - Change accuchecks to AC and HS - DMT2 diet ordered - Stopped D5NS 04/03 (3) Weakness: Plan: - Patient takes Parkinson's meds but per son, he does not have Parkinson's disease, mentioned "cerebral brain disorder" - PT/OT eval--recommending SNF - Case management - Family interested in halfway placement, even extending search for a bed to [place] where the son resides (4) Type 2 diabetes mellitus: Plan: - As above (5) Right arm weakness: Plan: - Son claims pt suffered shoulder fx approx 2 years ago and has had issues with this arm ever since - Claims shoulder fx was inoperable after seeing multiple orthopedic surgeons - Son claims pt has never had a stroke, MRI confirms this - 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 Family is to decide on 3 local options to relay to case management. If they are unable to locate a local facility, they are willing to expand search to [place] where the son resides. Case management consulted to assist in dc planning. Plan to be d/w Dr. Leslie. Admission and Anticipated Discharge Date Admission Date: April 01, 2022 Subjective Mr. Pulido was seen on rounds this morning. He is resting comfortably in bed, sleeping when I entered room but awakens easily. Has no complaints. Review of Systems Review of Systems: All systems reviewed and are unremarkable except as noted in HPI and below. +speech issues (chronic), R shoulder pain (chronic) Denies fever, chills, fatigue, headache, nasal congestion, sore throat, cough, chest pain, shortness of breath, palpitations, orthopnea, PND, abdominal pain, n/v/d, constipation, dysuria, hematuria, frequency, back pain, easy bruising or bleeding, skin lesions or rashes. Physical Exam Physical Exam: GENERAL: 76 yo Well-developed, well-nourished elderly WM. NAD. LUNGS: Clear to auscultation bilaterally. No W/R/R. CARDIOVASCULAR: Regular rate and rhythm. ABDOMEN: Soft, non-tender and non-distended. BS normoactive x 4 quad. EXTREMITIES: No edema. Non-tender. Peripheral pulses +2/4. 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 NEUROLOGIC: A&O. Difficult to communicate with due to garbled speech. PSYCHIATRIC: Cooperative. Appropriate mood and affect. SKIN: Warm, dry, intact. No rashes or lesions. Results & Data Results & Data ([facility]) Vital Signs (Past 12 Hours) Vital Signs Temp Pulse Resp BP Pulse Ox O2 Del Method 04/05/22 07:14 36.5 C 81 17 155/87 H 97 Room Air PG Care Time/CCT Total # of Minutes Spent Total Time Spent with Patient: Total time spent is greater than 50% in coordination of care (as documented) at patient's floor/unit and/or counseling patient: Coding Level of Care Code 57813 Subseq Hosp Care Lvl 1 Diagnoses Acute alteration in mental status R41.82 Hypoglycemia E16.2 Weakness R53.1 Type 2 diabetes mellitus E11.9 Right arm weakness R29.898
--- NOTE | 2022-04-05 13:53 | Pharmacy Report ---
Pharmacy Glycemic Short Note 2 - Date of Service April 05, 2022 - Glycemic Short BSG Results (Last 24 hours): 04/04/22 04/04/22 04/05/22 16:43 20:04 07:12 POC Glucose 183 H 127 H 128 H 04/05/22 11:41 POC Glucose 250 H OUTPATIENT ANTIDIABETIC REGIMEN: * Novolin 70/30- 40 units in AM and 30 units in PM * HbA1C = 6.1% (04/02/22) ASSESSMENT: 04/05/22: * BSGs reasonable well-controlled over past 48 hours (receiving ~30 units of insulin/day) * Fasting BSG decreased from 182 to 128 mg/dL today - will slightly reduce basal * Conservative with dose adjustments in light of prior hypoglycemia 04/02/22: * Mr Pulido is a 76 y/o M with a PMH of T2DM who presents with hypoglycemia and AMS. Per EMS, patient's BSG at home was 28 mg/dL. Patient given an amp of dextrose. * BSGs inhouse have been 71/102/89/64 yesterday 04/01/22 and then today have been 98/109/137 mg/dL. * Pharmacy consulted after lunch BSG of 137 mg/dL. * Patient on D5NS +20 KCl @ 80 cc/hr. Patient now has diet ordered. * Will start Lantus 10 units BID (hold if BSG < 180 mg/dL) as patient's BSGs are trending upwards. If higher than 180 mg/dL feel it is appropriate to restart basal insulin. * Novolog weight-based stress of 2. PLAN FOR INPATIENT GLYCEMIC CONTROL: * Basal insulin * Lantus 14 units SQ x 1 * Bolus insulin * NovoLog per scale ACHS or Q6hrs while NPO * Goal Range: Low 120 mg/dL - High 150 mg/dL * Correction Factor: 30 mg/dL/unit * Nutritional / Prandial insulin per carb ratio of 1 unit per 8 grams CHO consumed
[2022-04-05] MEDS: SIMVASTATIN 40 MG TAB PO SCH (20:48)
[2022-04-06] MEDS: CARBIDOPA/LEVODOP 10/100MG TAB PO SCH ×3 (09:03→21:20)
[2022-04-06] MEDS: ASPIRIN 81 MG ECTAB PO SCH (09:04)
[2022-04-06] MEDS: LOSARTAN POTASSIUM 50 MG TAB PO SCH (09:04)
[2022-04-06] MEDS: DONEPEZIL HCL 10 MG TAB PO SCH (09:04)
[2022-04-06] MEDS: INSULIN ASPART PER UNIT SC SCH ×4 (09:04→21:14)
[2022-04-06] MEDS: LANTUS PER UNIT CHARGE SQ SCH (09:08)
[2022-04-06] MEDS: ACETAMINOPHEN 325 MG TAB PO PRN (11:27)
--- NOTE | 2022-04-06 12:21 | Hospitalist Progress Note ---
Date of Service April 06, 2022 Assessment & Plan (1) Acute alteration in mental status: Plan: - Episode of hypoglycemia and associated AMS with a BS of 58 on admit c/w metabolic encephalopathy - Pt also has a h/o dementia and takes Aricept, uncertain how advanced his dementia is but will keep this in mind as he is at risk for delirium - Speech assessed pt on 04/02 for appropriate diet given his speech (pt's son notes that this has been going on for the past 4 years) - Pt is awake/alert and answering questions appropriately - MRI negative for stroke or other acute findings AMS has resolved (2) Hypoglycemia: Plan: - Resolved - Consulted pharmacy for glycemic management, appreciate assistance - Change accuchecks to AC and HS - DMT2 diet ordered - Stopped D5NS 04/03 (3) Weakness: Plan: - Patient takes Parkinson's meds but per son, he does not have Parkinson's disease, mentioned "cerebral brain disorder" - PT/OT eval--recommending SNF - Case management - Family interested in assisted placement, even extending search for a bed to [place] where the son resides (4) Type 2 diabetes mellitus: Plan: - As above (5) Right arm weakness: Plan: - Son claims pt suffered shoulder fx approx 2 years ago and has had issues with this arm ever since - Claims shoulder fx was inoperable after seeing multiple orthopedic surgeons - Son claims pt has never had a stroke, MRI confirms this - 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 Family requested centre care but anticipate no bed availability per case management note. Family provided name of facility close to son near [place]. Case management continues to follow to assist in dc planning. Given some concern for him coughing when he takes pills and eats, will reach back out to speech therapy. Plan to be d/w Dr. Leslie. Admission and Anticipated Discharge Date Admission Date: April 01, 2022 Subjective Patient seen on daily rounds this morning. RN noted that pt has been having some coughing spells when trying to take meds and occasionally while eating. Has been seen by speech and cleared for a diet. Pt has no other complaints. Review of Systems Review of Systems: All systems reviewed and are unremarkable except as noted in HPI and below. +speech issues (chronic), R shoulder pain (chronic) Denies fever, chills, fatigue, headache, nasal congestion, sore throat, cough, chest pain, shortness of breath, palpitations, orthopnea, PND, abdominal pain, n/v/d, constipation, dysuria, hematuria, frequency, back pain, easy bruising or bleeding, skin lesions or rashes. Physical Exam Physical Exam: GENERAL: 76 yo Well-developed, well-nourished elderly WM. NAD. LUNGS: Clear to auscultation bilaterally. No W/R/R. CARDIOVASCULAR: Regular rate and rhythm. ABDOMEN: Soft, non-tender and non-distended. BS normoactive x 4 quad. EXTREMITIES: No edema. Non-tender. Peripheral pulses +2/4. 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 NEUROLOGIC: A&O. Difficult to communicate with due to garbled speech. PSYCHIATRIC: Cooperative. Appropriate mood and affect. SKIN: Warm, dry, intact. No rashes or lesions. Results & Data Results & Data ([facility]) Vital Signs (Past 12 Hours) Vital Signs Temp Pulse Resp BP Pulse Ox O2 Del Method 04/06/22 11:30 36.4 C L 91 H 17 112/72 97 Room Air 04/06/22 09:22 36.8 C 89 18 165/80 H 99 Room Air PG Care Time/CCT Total # of Minutes Spent Total Time Spent with Patient: Total time spent is greater than 50% in coordination of care (as documented) at patient's floor/unit and/or counseling patient: Coding Level of Care Code 59945 Subseq Hosp Care Lvl 1 Diagnoses Acute alteration in mental status R41.82 Hypoglycemia E16.2 Weakness R53.1 Type 2 diabetes mellitus E11.9 Right arm weakness R29.898
[2022-04-06] MEDS: DOCUSATE SODIUM/SENNA 50/8.6MG TAB PO SCH (13:44)
[2022-04-06] MEDS: SIMVASTATIN 40 MG TAB PO SCH (21:19)
[2022-04-07] MEDS: ACETAMINOPHEN 325 MG TAB PO PRN ×2 (08:04→16:37)
[2022-04-07] MEDS: INSULIN ASPART PER UNIT SC SCH ×4 (08:54→20:03)
[2022-04-07] MEDS: LANTUS PER UNIT CHARGE SQ SCH (08:56)
[2022-04-07] MEDS: CARBIDOPA/LEVODOP 10/100MG TAB PO SCH ×3 (09:04→20:03)
[2022-04-07] MEDS: ASPIRIN 81 MG ECTAB PO SCH (09:04)
[2022-04-07] MEDS: DONEPEZIL HCL 10 MG TAB PO SCH (09:04)
[2022-04-07] MEDS: LOSARTAN POTASSIUM 50 MG TAB PO SCH (09:04)
--- NOTE | 2022-04-07 09:46 | Pharmacy Report ---
Pharmacy Glycemic Sign Off Nt - Date of Service April 07, 2022 - Assessment & Plan ASSESSMENT: * Pharmacy was consulted by Maria D Nash PA-C on 04/02/22 for glycemic control and to write orders per [facility] inpatient glycemic control protocol. * Major changes made by pharmacy to antidiabetic regimen include: * titration of Lantus dose and Novolog parameters * Patient has been receiving/requiring 25-30 units of insulin per day for adequate glycemic control * BSGs ranging 134-163 mg/dl * Regimen has only required minor adjustments over the past 48hrs to achieve this level of control * Do not anticipate further changes in patient status that would quickly deteriorate glycemic control (i.e. patient to be NPO for upcoming procedure, steroids tapering, starting tube feedings, etc). * Please see recommendations for outpatient antidiabetic regimen below. PLAN FOR INPATIENT GLYCEMIC CONTROL: No changes needed to current regimen. * Continue basal insulin with Lantus 15 units SC daily * Continue NovoLog per scale ACHS/Q6hrs while NPO * Goal range = 120-150 mg/dl * CF = 30 mg/dl/unit * CR = 1 unit for ever 8 g CHO consumed * Pharmacy is signing off of glycemic consult and will no longer be making ad justments to inpatient regimen. Please feel free to re-consult if needed. Thank you.
--- NOTE | 2022-04-07 15:46 | Fluoroscopy Report ---
VIDEO SWALLOW STUDY CLINICAL HISTORY: Aspiration. COMPARISON STUDY: No priors. Fluoroscopy time: 2.3 minutes. FINDINGS: Fluoroscopic guidance is provided to the Department of Speech Pathology in performing a vid eo swallow study. The patient consumed barium impregnated pudding, cracker with paste, thickened liqu ids, and thin barium while the swallowing mechanism was observed in real-time. There was pharyngeal p enetration and aspiration seen with thin barium. Cough reflex was noted. Silent aspiration was seen w ithin the mildly thickened liquids. No penetration or aspiration was seen with the remaining sampled textures. IMPRESSION: 1. There was aspiration with thin barium and mildly thickened liquids as above. 2. See dedicated speech pathology report for detailed findings and recommendations. Dictated: 04/07/2022 1:39 PM Transcribed: 04/07/2022 3:43 PM Lesli [id number] [email or web address] Electronically signed by: Ashwin Lockhart M.D. 04/07/2022 3:45 PM
[2022-04-07] MEDS: SIMVASTATIN 40 MG TAB PO SCH (20:04)
--- NOTE | 2022-04-07 20:37 | Hospitalist Progress Note ---
Date of Service April 07, 2022 Assessment & Plan (1) Acute alteration in mental status: Plan: - Episode of hypoglycemia and associated toxic and metabolic encephalopathy now resolved- with a BS of 58 on admit - Pt also has a h/o dementia and takes Aricept, uncertain how advanced his dementia is but will keep this in mind as he is at risk for delirium - Speech assessed pt on 04/02 for appropriate diet given his speech (pt's son notes that this has been going on for the past 4 years) - Pt is awake/alert and answering questions appropriately - MRI negative for stroke or other acute findings Encephalopathy has resolved (2) Hypoglycemia: Plan: - Resolved with holding insulin and giving D5 initially Suspect due to improper administration of insulin by at home who is also developing cognitive impairment as per report - Consulted pharmacy for glycemic management, appreciate assistance-they have now signed off - DMT2 diet ordered continue Lantus and Novolog (3) Weakness: Plan: - Patient takes Parkinson's meds but per son, he does not have Parkinson's disease, mentioned "cerebral brain disorder" - PT/OT eval--recommending SNF - Case management - 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 Family requested centre care but anticipate no bed availability per case management note. Family provided name of facility close to son near [place]. Case management continues to follow to assist in dc planning. Given some concern for him coughing when he takes pills and eats, will reach back out to speech therapy-they did video swallow which shows aspiration only with large sips of liquids-encourage small sips and no straws Medically stable for discharge Admission and Anticipated Discharge Date Admission Date: April 01, 2022 Subjective Pt c/o pain in his lower back. Otherwise no issues Review of Systems Review of Systems: All systems reviewed & are unremarkable except as noted in HPI & below Physical Exam Constitutional: WD/WN, vitals as above Neck: trachea midline, no thyromegaly Respiratory: normal respiratory effort, lungs clear to auscultation Cardiovascular: RRR, no murmur, no edema Chest (Breasts): Chest: normal inspection of chest Gastrointestinal (Abdomen): normal bowel sounds, soft, nontender, no hepatosplenomegaly Musculoskeletal: Extremities: extremities normal to inspection; no cyanosis and no clubbing Skin: no rashes, warm and dry Neurologic: moves all extremities and awake; no focal motor deficits Lymphatic: no lymphedema Results & Data Results & Data ([facility]) Vital Signs (Past 12 Hours) Vital Signs Temp Pulse Resp BP Pulse Ox O2 Del Method 04/07/22 14:59 36.3 C L 84 17 96/57 L 96 Room Air 04/07/22 13:33 Room Air Laboratory Results 04/07/22 04/07/22 04/07/22 Range/Units 19:49 17:24 16:28 POC Glucose 188 H 126 H 71 (70-99) mg/dl 04/07/22 04/07/22 Range/Units 11:33 07:29 POC Glucose 261 H 129 H (70-99) mg/dl PG Care Time/CCT Total # of Minutes Spent Total Time Spent with Patient: Total time spent is greater than 50% in coordination of care (as documented) at patient's floor/unit and/or counseling patient: Coding Level of Care Code 29338 Subseq Hosp Care Lvl 1 Diagnoses Acute alteration in mental status R41.82 Hypoglycemia E16.2 Weakness R53.1 Type 2 diabetes mellitus E11.9 Right arm weakness R29.898
[2022-04-08] MEDS: CARBIDOPA/LEVODOP 10/100MG TAB PO SCH ×3 (07:35→20:31)
[2022-04-08] MEDS: ACETAMINOPHEN 325 MG TAB PO PRN ×2 (07:35→20:31)
[2022-04-08] MEDS: DONEPEZIL HCL 10 MG TAB PO SCH (07:36)
[2022-04-08] MEDS: ASPIRIN 81 MG ECTAB PO SCH (07:36)
[2022-04-08] MEDS: LOSARTAN POTASSIUM 50 MG TAB PO SCH (07:36)
[2022-04-08] MEDS: LANTUS PER UNIT CHARGE SQ SCH (09:26)
[2022-04-08] MEDS: INSULIN ASPART PER UNIT SC SCH ×4 (09:27→20:42)
[2022-04-08] MEDS: DOCUSATE SODIUM/SENNA 50/8.6MG TAB PO SCH (15:51)
--- NOTE | 2022-04-08 19:24 | Hospitalist Progress Note ---
Date of Service April 08, 2022 Assessment & Plan (1) Acute alteration in mental status: Plan: - Episode of hypoglycemia and associated toxic and metabolic encephalopathy now resolved- with a BS of 58 on admit - Pt also has a h/o dementia and takes Aricept, uncertain how advanced his dementia is but will keep this in mind as he is at risk for delirium - Speech assessed pt on 04/02 for appropriate diet given his speech (pt's son notes that this has been going on for the past 4 years) - Pt is awake/alert and answering questions appropriately, has garbled speech at baseline - MRI brain negative for stroke or other acute findings Encephalopathy has resolved (2) Hypoglycemia: Plan: - Resolved with holding insulin and giving D5 initially Suspect due to excessive administration of insulin by at home who is also developing cognitive impairment as per report, but also son reports patient and his have not been eating as much as they get older and with increased cognitive impairment so likely his insulin requirement has gone down as we are seeing here in hospital HgbA1C low at 6.1% Home regimen was NPH 40 units in AM and 30 units in PM. Here only requiring Lantus 15 units once dialy and minimal Novolog SSI - Consulted pharmacy for glycemic management, appreciate assistance-they have now signed off - DM2 diet ordered continue Lantus and Novolog (3) Weakness: Plan: - Patient takes Parkinson's meds but per son, he does not have Parkinson's disease, mentioned "cerebral brain disorder" - PT/OT eval--recommending SNF - Case management - Family interested in retirement placement, even extending search for a bed to [place] where the son resides would be helpful to have notes from his neurologist (4) Type 2 diabetes mellitus: Plan: - As above (5) Right arm weakness: Plan: - Son claims pt suffered shoulder fx approx 2 years ago and has had issues with this arm ever since - Claims shoulder fx was inoperable after seeing multiple orthopedic surgeons - Son claims pt has never had a stroke, MRI confirms this - 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 Family requested centre care but anticipate no bed availability per case management note. Family provided name of facility close to son near [place]. Case management continues to follow to assist in dc planning. Given some concern for him coughing when he takes pills and eats, will reach back out to speech therapy-they did video swallow which shows aspiration only with large sips of liquids-encourage small sips and no straws Medically stable for discharge. Discussed care with son on phone who is not ready for patient to be discharged yet due to logistical issues with wanting to move his mom (patient's ) also up to the same area, etc. Is requesting a meeting tomorrow with [employer] Lead in person to discuss this Admission and Anticipated Discharge Date Admission Date: April 01, 2022 Subjective Pt has c/o shoulder pain on the right. Denies abd pain. Knows his name and the year but does not know where he is or the month. Is pleasantly confused. No issues reported by nursing. Discussed his care with [employer] Lead and the pt's son on the phone. Review of Systems Review of Systems: All systems reviewed & are unremarkable except as noted in HPI & below Physical Exam Constitutional: WD/WN, vitals as above Eyes: + anicteric sclerae Neck: trachea midline, no thyromegaly Respiratory: normal respiratory effort, lungs clear to auscultation Cardiovascular: RRR, no murmur, no edema Chest (Breasts): Chest: normal inspection of chest Gastrointestinal (Abdomen): normal bowel sounds, soft, nontender, no hepatosplenomegaly Musculoskeletal: Extremities: extremities normal to inspection; no cyanosis and no clubbing Skin: no rashes, warm and dry Neurologic: + focal motor deficit (moves fingers on right hand but not RUE otherwise) and awake; + does not move all extremities (does not move RUE) Psychiatric: Orientation: alert, oriented to person and cooperative Lymphatic: no lymphedema Results & Data Results & Data ([facility]) Vital Signs (Past 12 Hours) Vital Signs Temp Pulse Resp BP Pulse Ox O2 Del Method 04/08/22 15:12 36.5 C 81 17 134/74 95 Room Air 04/08/22 08:00 Room Air 04/08/22 11:53 36.4 C L 85 95 H 109/67 95 Room Air 04/08/22 07:28 36.5 C 82 16 118/77 96 Room Air Laboratory Results 04/08/22 04/08/22 04/08/22 Range/Units 16:27 16:25 11:36 POC Glucose 71 69 L* 213 H (70-99) mg/dl 04/08/22 04/07/22 Range/Units 07:11 19:49 POC Glucose 148 H 188 H (70-99) mg/dl PG Care Time/CCT Total # of Minutes Spent Total Time Spent with Patient: Total time spent is greater than 50% in coordination of care (as documented) at patient's floor/unit and/or counseling patient: Coding Level of Care Code 50364 Subseq Hosp Care Lvl 1 Diagnoses Acute alteration in mental status R41.82 Hypoglycemia E16.2 Weakness R53.1 Type 2 diabetes mellitus E11.9 Right arm weakness R29.898
[2022-04-08] MEDS: SIMVASTATIN 40 MG TAB PO SCH (20:31)
[2022-04-09] MEDS: DONEPEZIL HCL 10 MG TAB PO SCH (08:10)
[2022-04-09] MEDS: ASPIRIN 81 MG ECTAB PO SCH (08:10)
[2022-04-09] MEDS: LOSARTAN POTASSIUM 50 MG TAB PO SCH (08:10)
[2022-04-09] MEDS: CARBIDOPA/LEVODOP 10/100MG TAB PO SCH ×3 (08:10→19:23)
[2022-04-09] MEDS: INSULIN ASPART PER UNIT SC SCH ×4 (08:29→22:00)
[2022-04-09] MEDS: LANTUS PER UNIT CHARGE SQ SCH (08:30)
[2022-04-09] MEDS ORDERED: COVID19 BIVALENT Vaccine (Booster ONLY--Pfizer) 30mcg/0.3mL IM ONE (15:14)
--- NOTE | 2022-04-09 18:00 | Hospitalist Progress Note ---
Date of Service April 09, 2022 Assessment & Plan (1) Acute alteration in mental status: Plan: - Episode of hypoglycemia and associated toxic and metabolic encephalopathy now resolved- with a BS of 58 on admit-hypoglycemia long since resolved - Pt also has a h/o dementia and takes Aricept, uncertain how advanced his dementia is but will keep this in mind as he is at risk for delirium - Speech assessed pt on 04/02 for appropriate diet given his speech (pt's son notes that this has been going on for the past 4 years) - Pt is awake/alert and answering questions appropriately, has slowed, slurred speech at baseline - MRI brain negative for stroke or other acute findings Encephalopathy has resolved (2) Hypoglycemia: Plan: - Resolved with holding insulin and giving D5 initially Suspect due to excessive administration of insulin by at home who is also developing cognitive impairment as per report, but also son reports patient and his have not been eating as much as they get older and with increased cognitive impairment so likely his insulin requirement has gone down as we are seeing here in hospital HgbA1C low at 6.1% Home regimen was NPH 40 units in AM and 30 units in PM. Here only requiring Lantus 15 units once dialy and minimal Novolog SSI - Consulted pharmacy for glycemic management, appreciate assistance-they have now signed off - DM2 diet ordered continue Lantus and Novolog (3) Weakness: Plan: - Patient takes Parkinson's meds but per son, he does not have Parkinson's disease, mentioned "cerebral brain disorder" Patient and his both deny ever having seen a Neurologist either in [place] or when they lived in [place]. Thye were never told a diagnosis of parkinson's or any diagnosis for his condition of progressive weakness and slurred speech, cognitive impairment. He has no h/o tremor as per and patient. 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 (4) Type 2 diabetes mellitus: Plan: - As above would also dc [place] on discharge (5) Right arm weakness: Plan: - Son claims pt suffered shoulder fx approx 2 years ago and has had issues with this arm ever since - Claims shoulder fx was inoperable after seeing multiple orthopedic surgeons - Son claims pt has never had a stroke, MRI confirms this - 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 Decision now made to move patient to SNF with memory unit in [facility]. Son has signed paperwork there and plans to discharge there on Tuesday Admission and Anticipated Discharge Date Admission Date: April 01, 2022 Subjective Pt has no complaints. at the bedside thinks he looks more alert and awake today. He denies any problems, is eating and drinking. Discussed his speech issues and chronic progressive weakness and both pt and report he has never seen a Neurologist and never been given a diagnosis for his condition; he has never been told he had Parkinson's disease and also never had any issues with tremors. Review of Systems Review of Systems: All systems reviewed & are unremarkable except as noted in HPI & below Physical Exam Constitutional: WD/WN, vitals as above Eyes: + anicteric sclerae Neck: trachea midline, no thyromegaly Respiratory: normal respiratory effort, lungs clear to auscultation Cardiovascular: RRR, no murmur, no edema Chest (Breasts): Chest: normal inspection of chest Gastrointestinal (Abdomen): normal bowel sounds, soft, nontender, no hepatospl enomegaly Musculoskeletal: Extremities: extremities normal to inspection; no cyanosis and no clubbing Skin: no rashes, warm and dry Neurologic: + focal motor deficit (moves fingers on right hand but not RUE otherwise) and awake; + does not move all extremities (does not move RUE) Speech / Cognition: + abnormal speech (slowed and slurred) Psychiatric: Orientation: alert, oriented to person and cooperative Lymphatic: no lymphedema Results & Data Results & Data ([facility]) Vital Signs (Past 12 Hours) Vital Signs Temp Pulse Resp BP Pulse Ox O2 Del Method 04/09/22 15:10 36.5 C 86 18 134/81 96 Room Air 04/09/22 06:22 36.9 C 78 20 151/69 H 98 Room Air Laboratory Results 04/09/22 04/09/22 04/09/22 Range/Units 16:31 11:47 07:48 POC Glucose 139 H 171 H 137 H (70-99) mg/dl 04/08/22 Range/Units 19:48 POC Glucose 123 H (70-99) mg/dl PG Care Time/CCT Total # of Minutes Spent Total Time Spent with Patient: Total time spent is greater than 50% in coordination of care (as documented) at patient's floor/unit and/or counseling patient: Coding Level of Care Code 30007 Subseq Hosp Care Lvl 1 Diagnoses Acute alteration in mental status R41.82 Hypoglycemia E16.2 Weakness R53.1 Type 2 diabetes mellitus E11.9 Right arm weakness R29.898
[2022-04-09] MEDS: SIMVASTATIN 40 MG TAB PO SCH (19:23)
[2022-04-10] MEDS: CARBIDOPA/LEVODOP 10/100MG TAB PO SCH ×3 (08:51→20:15)
[2022-04-10] MEDS: DONEPEZIL HCL 10 MG TAB PO SCH (08:51)
[2022-04-10] MEDS: LOSARTAN POTASSIUM 50 MG TAB PO SCH (08:51)
[2022-04-10] MEDS: ASPIRIN 81 MG ECTAB PO SCH (08:52)
[2022-04-10] MEDS: LANTUS PER UNIT CHARGE SQ SCH (08:57)
[2022-04-10] MEDS: INSULIN ASPART PER UNIT SC SCH ×4 (08:57→20:20)
--- NOTE | 2022-04-10 12:14 | Hospitalist Progress Note ---
Date of Service April 10, 2022 Assessment & Plan (1) Acute alteration in mental status: Plan: - Episode of hypoglycemia and associated toxic and metabolic encephalopathy now resolved- with a BS of 58 on admit-hypoglycemia long since resolved - Pt also has a h/o dementia and takes Aricept, uncertain how advanced his dementia is but will keep this in mind as he is at risk for delirium - Speech assessed pt on 04/02 for appropriate diet given his speech (pt's son notes that this has been going on for the past 4 years) - Pt is awake/alert and answering questions appropriately, has slowed, slurred speech at baseline - MRI brain negative for stroke or other acute findings Encephalopathy has resolved (2) Hypoglycemia: Plan: - Resolved with holding insulin and giving D5 initially Suspect due to excessive administration of insulin by at home who is also developing cognitive impairment as per report, but also son reports patient and his have not been eating as much as they get older and with increased cognitive impairment so likely his insulin requirement has gone down as we are seeing here in hospital HgbA1C low at 6.1% Home regimen was NPH 40 units in AM and 30 units in PM. Here only requiring Lantus 15 units once dialy and minimal Novolog SSI - Consulted pharmacy for glycemic management, appreciate assistance-they have now signed off - DM2 diet ordered continue Lantus and Novolog (3) Weakness: Plan: - Patient takes Parkinson's meds but per son, he does not have Parkinson's disease, mentioned "cerebral brain disorder" Patient and his both deny ever having seen a Neurologist either in [place] or when they lived in [place]. Thye were never told a diagnosis of parkinson's or any diagnosis for his condition of progressive weakness and slurred speech, cognitive impairment. He has no h/o tremor as per and patient. 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 Decision now made to move patient to SNF with memory unit in [facility]. Son has signed paperwork there and plans to discharge there on Tuesday Admission and Anticipated Discharge Date Admission Date: April 01, 2022 Subjective No complaints. Denies pain. No overnight events Review of Systems Review of Systems: All systems reviewed & are unremarkable except as noted in HPI & below Physical Exam Constitutional: WD/WN, vitals as above Eyes: + anicteric sclerae Neck: trachea midline, no thyromegaly Respiratory: normal respiratory effort, lungs clear to auscultation Cardiovascular: RRR, no murmur, no edema Chest (Breasts): Chest: normal inspection of chest Gastrointestinal (Abdomen): normal bowel sounds, soft, nontender, no hepatosplenomegaly Musculoskeletal: Extremities: extremities normal to inspection; no cyanosis and no clubbing Skin: no rashes, warm and dry Neurologic: + focal motor deficit (moves fingers on right hand but not RUE otherwise) and awake; + does not move all extremities (does not move RUE) Speech / Cognition: + abnormal speech (slowed and slurred) Psychiatric: Orientation: alert, oriented to person and cooperative Lymphatic: no lymphedema Results & Data Results & Data ([facility]) Vital Signs (Past 12 Hours) Vital Signs Temp Pulse Resp BP Pulse Ox O2 Del Method 04/10/22 10:42 Room Air 04/10/22 06:40 36.8 C 91 H 18 136/87 93 Room Air Laboratory Results 04/10/22 04/10/22 04/09/22 Range/Units 11:32 07:12 20:26 POC Glucose 247 H 165 H 176 H (70-99) mg/dl 04/09/22 Range/Units 16:31 POC Glucose 139 H (70-99) mg/dl PG Care Time/CCT Total # of Minutes Spent Total Time Spent with Patient: Total time spent is greater than 50% in coordination of care (as documented) at patient's floor/unit and/or counseling patient: Coding Level of Care Code 79197 Subseq Hosp Care Lvl 1 Diagnoses Acute alteration in mental status R41.82 Hypoglycemia E16.2 Weakness R53.1 Type 2 diabetes mellitus E11.9 Right arm weakness R29.898
[2022-04-10] MEDS: DOCUSATE SODIUM/SENNA 50/8.6MG TAB PO SCH (15:25)
[2022-04-10] MEDS: SIMVASTATIN 40 MG TAB PO SCH (20:15)
[2022-04-11] MEDS: CARBIDOPA/LEVODOP 10/100MG TAB PO SCH ×3 (08:59→20:05)
[2022-04-11] MEDS: DONEPEZIL HCL 10 MG TAB PO SCH (09:00)
[2022-04-11] MEDS: ASPIRIN 81 MG ECTAB PO SCH (09:00)
[2022-04-11] MEDS: LOSARTAN POTASSIUM 50 MG TAB PO SCH (09:00)
[2022-04-11] MEDS: LANTUS PER UNIT CHARGE SQ SCH (09:00)
[2022-04-11] MEDS: INSULIN ASPART PER UNIT SC SCH ×4 (09:00→21:05)
--- NOTE | 2022-04-11 13:54 | Hospitalist Progress Note ---
Date of Service April 11, 2022 Assessment & Plan (1) Acute alteration in mental status: Plan: - Episode of hypoglycemia and associated toxic and metabolic encephalopathy now resolved- with a BS of 58 on admit-hypoglycemia long since resolved - Pt also has a h/o dementia and takes Aricept, uncertain how advanced his dementia is but will keep this in mind as he is at risk for delirium - Speech assessed pt on 04/02 for appropriate diet given his speech (pt's son notes that this has been going on for the past 4 years) - Pt is awake/alert and answering questions appropriately, has slowed, slurred speech at baseline - MRI brain negative for stroke or other acute findings Encephalopathy has resolved (2) Hypoglycemia: Plan: - Resolved with holding insulin and giving D5 initially Suspect due to excessive administration of insulin by at home who is also developing cognitive impairment as per report, but also son reports patient and his have not been eating as much as they get older and with increased cognitive impairment so likely his insulin requirement has gone down as we are seeing here in hospital HgbA1C low at 6.1% Home regimen was NPH 40 units in AM and 30 units in PM. Here only requiring Lantus 15 units once dialy and minimal Novolog SSI - Consulted pharmacy for glycemic management, appreciate assistance-they have now signed off - DM2 diet ordered continue Lantus and Novolog (3) Weakness: Plan: - Patient takes Parkinson's meds but per son, he does not have Parkinson's disease, mentioned "cerebral brain disorder" Patient and his both deny ever having seen a Neurologist either in [place] or when they lived in [place]. Thye were never told a diagnosis of parkinson's or any diagnosis for his condition of progressive weakness and slurred speech, cognitive impairment. He has no h/o tremor as per and patient. 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 Decision now made to move patient to SNF with memory unit in [facility]. Son has signed paperwork there and plans to discharge there on Tuesday if transportation can be arranged Admission and Anticipated Discharge Date Admission Date: April 01, 2022 Subjective Pt has no complaints. Denies pain. 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 per die repairer forging of Systems Review of Systems: All systems reviewed & are unremarkable except as noted in HPI & below Physical Exam Constitutional: WD/WN, vitals as above Eyes: + anicteric sclerae Neck: trachea midline, no thyromegaly Respiratory: normal respiratory effort, lungs clear to auscultation Cardiovascular: RRR, no murmur, no edema Chest (Breasts): Chest: normal inspection of chest Gastrointestinal (Abdomen): normal bowel sounds, soft, nontender, no hepatosplenomegaly Musculoskeletal: Extremities: extremities normal to inspection; no cyanosis and no clubbing Skin: no rashes, warm and dry Neurologic: + focal motor deficit (moves fingers on right hand but not RUE otherwise) and awake; + does not move all extremities (does not move RUE) Speech / Cognition: + abnormal speech (slowed and slurred) Psychiatric: Orientation: alert, oriented to person and cooperative Lymphatic: no lymphedema Results & Data Results & Data ([facility]) Vital Signs (Past 12 Hours) Vital Signs Temp Pulse Resp BP Pulse Ox O2 Del Method 04/11/22 13:49 37.1 C 92 H 17 114/65 93 Room Air 04/11/22 10:30 Room Air 04/11/22 07:52 36.4 C L 93 H 16 142/80 H 97 Room Air 04/11/22 04:04 36.5 C 74 18 110/68 95 Room Air PG Care Time/CCT Total # of Minutes Spent Total Time Spent with Patient: Total time spent is greater than 50% in coordination of care (as documented) at patient's floor/unit and/or counseling patient: Coding Level of Care Code 27532 Subseq Hosp Care Lvl 1 Diagnoses Acute alteration in mental status R41.82 Hypoglycemia E16.2 Weakness R53.1 Type 2 diabetes mellitus E11.9 Right arm weakness R29.898
[2022-04-11] MEDS: SIMVASTATIN 40 MG TAB PO SCH (20:05)
[2022-04-12 06:45] LABS: Basophils # (auto) 0.08 K/uL (0-0.2); Basophils % (auto) 0.8 %; Eosinophils # (auto) 0.45 K/uL (0-0.50); Eosinophils % (auto) 4.4 %; Hematocrit (blood only) 40.6 % (40.1-51.0); Hemoglobin 13.5 g/dl (14.0-18.0); Immature Granulocytes # (auto) 0.02 K/uL (0.00-0.02); Immature Granulocytes % (auto) 0.2 %; Lymphocytes # (auto) 2.21 K/uL (1.2-3.4); Lymphocytes % (auto) 21.8 %; Mean Corpuscular Hemoglobin 30.4 pg (25.0-34.0); Mean Corpuscular Hgb Conc 33.3 g/dL (32.0-36.0); Mean Corpuscular Volume 91.4 fL (80.0-100.0); Mean Platelet Volume 9.7 fL (9.4-12.4); Monocytes # (auto) 0.49 K/uL (0.24-0.82); Monocytes % (auto) 4.8 %; Neutrophils # (auto) 6.91 K/uL (1.4-6.5); Platelet Count 306 K/uL (130-400); RDW Standard Deviation 47.2 fL (36.4-46.3); Red Blood Count 4.44 M/uL (4.63-6.08); White Blood Count 10.16 K/ul (4.8-10.8)
[2022-04-12 07:43] LABS: Calcium 9.1 mg/dl (8.5-10.1); Creatinine Clr Calc Pharmacy 83.8 ml/min; Est GFR (African American) 101.8 ml/min; Est GFR (Non-African American) 87.9 ml/min
[2022-04-12] MEDS: INSULIN ASPART PER UNIT SC SCH (08:03)
[2022-04-12] MEDS: ASPIRIN 81 MG ECTAB PO SCH (08:04)
[2022-04-12] MEDS: CARBIDOPA/LEVODOP 10/100MG TAB PO SCH (08:05)
[2022-04-12] MEDS: DONEPEZIL HCL 10 MG TAB PO SCH (08:05)
[2022-04-12] MEDS: LOSARTAN POTASSIUM 50 MG TAB PO SCH (08:05)
[2022-04-12] MEDS ORDERED: LANTUS PER UNIT CHARGE SQ SCH (09:00)
--- NOTE | 2022-04-12 11:47 | Discharge Summary ---
Date of Service April 12, 2022 Admission HPI Per Admitting Provider Dioni Pulido is a 76-year-old male with past medical history of diabetes, hypertension, dementia/Parkinson's who presented today due to hypoglycemic episode at home. He was seen yesterday in the ED for similar presentation. At that time, his blood sugar was able to be normalized and he was discharged home with instructions to continue usual meds. Today, his administered his usual morning insulin dose. She states that he had a relatively normal sized breakfast, but that as usual, he had not eaten much for lunch or dinner. Later in the afternoon she noticed that he was acting unlike himself at which point she decided to call EMS. When seen by EMS, patient's blood sugar was found to be at 23. He was administered D10 IV and BSG improved to 71. Patient at bedside reports concerns that he has been deteriorating somewhat over the past week. The patient himself denies chest pain, palpitations, nausea, vomiting, shortness of breath, cough, headache, dizziness. Patient's son (JOSHUA) is in the room as well. Shortly after my conversation with all of them in the room, patient's son followed me out of the room and stated that he was concerned about his father's wellbeing. He states he believes his father should be in a fci, as he does not believe his mom is able to completely take care of his father. He states that there have been several instances in which his mom has seemed to have forgotten to administer medications. He also states she is unable to help the patient with all his mobility needs, as she is unable to carry him. He has very limited mobility at baseline. The patient's son lives in [place] and works in [place]. He does visit every weekend but is unable to be around full-time. He states they have discussed moving his father to a fci and that they are all in agreement with this. He states he would like help figuring out where his father might be able to go. Principal Diagnosis Acute metabolic and toxic encephalopathy, hypoglycemia Discharge Exam Constitutional WD/WN, vitals as above Eyes + anicteric sclerae Neck trachea midline, no thyromegaly Respiratory normal respiratory effort, lungs clear to auscultation Cardiovascular RRR, no murmur, no edema Chest (Breasts) Chest: normal inspection of chest Gastrointestinal (Abdomen) normal bowel sounds, soft, nontender, no hepatosplenomegaly Musculoskeletal Extremities: extremities normal to inspection; no cyanosis and no clubbing Skin no rashes, warm and dry Neurologic + focal motor deficit (moves fingers on right hand but not RUE otherwise) and awake; + does not move all extremities (does not move RUE) Speech / Cognition: + abnormal speech (slowed and slurred) Psychiatric Orientation: alert, oriented to person and cooperative Lymphatic no lymphedema Discharge Data Allergies Allergy/AdvReac Type Severity Reaction Status Date / Time No Known Allergies Allergy Verified 04/02/22 00:02 Consultations 04/01/22 21:53 ED Decision to Admit Stat Ordered Studies 04/01/22 19:56 CT head/brain wo con Urgent 04/02/22 13:36 MRI Brain [MR brain wo con] Routine 04/07/22 09:30 FL video swallow Routine Hospital Course (1) Acute alteration in mental status: - Episode of hypoglycemia and associated toxic and metabolic encephalopathy now resolved- with a BS of 58 on admit-hypoglycemia long since resolved - Pt also has a h/o dementia and takes Aricept, uncertain how advanced his dementia is but will keep this in mind as he is at risk for delirium - Speech assessed pt on 04/02 for appropriate diet given his speech (pt's son notes that this has been going on for the past 4 years) - Pt is awake/alert and answering questions appropriately, has slowed, slurred speech at baseline - MRI brain negative for stroke or other acute findings Encephalopathy has resolved (2) Hypoglycemia: - Resolved with holding insulin and giving D5 initially Suspect due to excessive administration of insulin by at home who is also developing cognitive impairment as per report, but also son reports patient and his have not been eating as much as they get older and with increased cognitive impairment so likely his insulin requirement has gone down as we are seeing here in hospital HgbA1C low at 6.1% Home regimen was NPH 40 units in AM and 30 units in PM. Here only requiring Lantus 15 units once dialy and minimal Novolog SSI - Consulted pharmacy for glycemic management, appreciate assistance-they have now signed off - DM2 diet ordered continue Lantus and Novolog dc home Actos on discharge (3) Weakness: - Patient takes Parkinson's meds but per son, he does not have Parkinson's d isease, mentioned "cerebral brain disorder" Patient and his both deny ever having seen a Neurologist either in [place] or when they lived in [place]. Lindae were never told a diagnosis of roxie son's or any diagnosis for his condition of progressive weakness and slurred speech, cognitive impairment. He has no h/o tremor as per and patient. 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 Decision now made to move patient to SNF with memory unit in [facility]. Son has signed paperwork there and plans to discharge there today Total Time Total Time Spent Total Time Spent (In Minutes): 35 min Discharge Plan Discharge Items Patient Disposition: Transfer Fdc Fac Reason For Visit: HYPOGLYCEMIA Discharge Diagnosis: Hypoglycemia Condition on Discharge: Fair Activity: As commented below Lifting: Gradually increase as tolerated Bathing: No limitations Exercise/Sports: Gradually increase as tolerated Non-emergency contact: Primary Care Provider Call non-emergency contact if: you have any medication questions Follow-up/Referrals: [facility] [Primary Care Provider] - Diet: Carb Consistent or DM2 Addtl Attending Provider Instructions: You were admitted for having low blood sugar from taking too much insulin. This improved with reducing the amount of insulin you take and giving you sugar water through the IV initially. You are being transferred to a rehab facility. Because of your progressive weakness and speech issues over the last year or so, it is recommended that you be evaluated by a Neurologist once you get established in your new facility/region. Your brain MRI showed no signs of stroke. Pending Studies at Discharge: No Stand-Alone Forms: My [facility] Skilled Items Patient informed of condition?: Yes DNR: Yes Discharge Level of Care: Skilled Communicable Disease: No Discharge Prognosis: Improving Lines: None Urinary Catheter: No Medications and DC Order Prescriptions: New insulin aspart U-100 [Novolog U-100 Insulin aspart] 100 unit/mL Solution See Rx Instructions .ROUTE .COMPLEX Qty: 10 0RF Rx Instructions: Recommend goal range glucose 100-140 with correction factor of 1 unit for 30 g/dL over 140 and carb ration 1 unit: 8 grams carbs insulin glargine [Lantus U-100 Insulin] 100 unit/mL Solution 18 unit subcut DAILY Qty: 10 0RF simvastatin 40 mg Tablet 40 mg PO HS Qty: 30 0RF Continued losartan 50 mg Tablet 50 mg PO DAILY Qty: 30 0RF Rx Instructions: PER [place] acetaminophen [Tylenol] 325 mg Tablet 650 mg PO Q6 PRN (Reason: Pain) Qty: 90 0RF donepezil 10 mg Tablet 10 mg PO DAILY Qty: 30 0RF Rx Instructions: PER [facility] sennosides-docusate sodium [Senna-S] 8.6-50 mg Tablet 1 tab-cap PO Q OTHER DAY Qty: 30 0RF aspirin 81 mg Tablet,Delayed Release (Dr/Ec) 81 mg PO DAILY Qty: 30 0RF carbidopa-levodopa 10-100 mg Tablet 1 tab PO TID Qty: 90 0RF Rx Instructions: PER [place] multivitamin with minerals Tablet 1 tab PO DAILY Qty: 30 0RF Rx Instructions: PER [facility] coenzyme Q10 [CoQ-10] 100 mg Capsule 100 mg PO DAILY Qty: 30 0RF cholecalciferol (vitamin D3) [Vitamin D3] 125 mcg (5,000 unit) Tablet 125 mcg PO DAILY Qty: 30 0RF Discontinued Novolin 70/30 U-100 Insulin 100 unit/mL (70-30) Suspension 40 unit SUBCUT QAM Rx Instructions: PER [place] Novolin 70/30 U-100 Insulin 100 unit/mL (70-30) Suspension 30 unit SUBCUT QPM Rx Instructions: PER [place] pioglitazone [Actos] 45 mg Tablet 45 mg PO DAILY Rx Instructions: Per [facility] simvastatin 80 mg Tablet 40 mg PO HS Rx Instructions: PER [facility] meloxicam 7.5 mg Tablet 7.5 - 15 mg PO DAILY Rx Instructions: TRY LOWER DOSE 1ST lidocaine 5 % Adhesive Patch,Medicated 1 patch TOPICAL DAILY Rx Instructions: leave on most painful area for up to 12 hrs, RIGHT ARM. LEAVE ON FOR 12 HR THEN REMOVE. Discharge Orders: Discharge Order (Routine); Ordered 04/12/22 Ordered By: Ryann Valencia/Other Patient Handouts: Hypoglycemia (Low Blood Sugar), Managing Type 2 Diabetes Admission Data Admit Date/Time: 04/01/22 23:49 Attending Provider: Ryann Shirley Admit Provider: Louie Webb Primary Care Provider: [facility] Other Providers: Gil Steel ; Lilo Harris [place] ; [place],[facility] Coding Level of Care Code D/C DAY MANAGEMENT >30 MINS Diagnoses Acute alteration in mental status R41.82 Hypoglycemia E16.2 Weakness R53.1 Type 2 diabetes mellitus E11.9 Right arm weakness R29.898
== END 2022-04-12 12:00 | DRG 917 ==
LOC: ED 19:09 → SUATTDRO 23:49 → EDINP 23:49 → 2W 04-02 17:38